=== PATIENT | female | born 1980 | race Caucasian/White ===

== ENCOUNTER 2016-11-04 09:01 | Emergency (ER) ==
[2016-11-04 09:06] VITALS: BP 182/106; TEMP 98.7; BMI 58.7
[2016-11-04 09:26] LABS: BILIRUBIN,URINE Negative (NEGATIVE); KETONES,URINE Negative (NEGATIVE); LEUKOCYTE ESTERASE ,URINE Trace (NEGATIVE); NITRITE,URINE Negative (NEGATIVE); PH,URINE 5.5 (5-9); PROTEIN,URINE Negative (NEGATIVE); URINE, BLOOD Negative (NEGATIVE)
[2016-11-04 09:28] LABS: ADD URINE MICROSCOPIC YES
[2016-11-04 09:29] LABS: URINE PREGNANCY INTERNAL QC INTERNAL QC VALID
--- NOTE | 2016-11-04 09:42 | ED.PDOC ---
General ED Provider: Dr. DUSTIN BOSWELL Chief Complaint: Vaginal Discharge/Swelling Stated Complaint: Patient reports vaginal itching for the past few days. Feels like when she had a yeast infection. Time Seen by Physician: 09:39 Mode of Arrival: Walk-In Information Source: Patient Primary Care Provider: VIVIAN MCINTYRE Nursing and Triage Documentation Reviewed and Agree: Yes Complaint Exam - Complaint/Exam Patient Complains of: Reports: Vaginal discharge (with itching ) Onset/Duration: 2 days Symptoms Are: Still present Timing: Constant Initial Severity: Mild Current Severity: Moderate Location of Pain: Reports: Vulva (minimal pain mostly itching ) Character: Reports: Sharp Aggravating: Reports: None Alleviating: Reports: None Associated Signs and Symptoms: Reports: Vaginal discharge (with itching ) Ectopic Risk Factors: Reports: None Ovarian Torsion Risk Factors: Reports: None Surgical Obstruction Risk Factors: Reports: None RH Status: Unknown Related Surgical History: Reports: None Differential Diagnoses: Other (yeast) Review of Systems - Review Of Systems Constitutional: Reports: No symptoms Eyes: Reports: No symptoms Ears, Nose, Mouth, Throat: Reports: No symptoms Respiratory: Reports: No symptoms Cardiac: Reports: No symptoms GI: Reports: No symptoms : Reports: Discharge (minimal ), Other (vaginal itching ) Musculoskeletal: Reports: No symptoms Skin: Reports: Rash (facial acne ) Neurological: Reports: No symptoms Endocrine: Reports: No symptoms Hematologic/Lymphatic: Reports: No symptoms All Other Systems: Reviewed and Negative Past Medical History - Past Medical History Endocrine: Reports: None Cardiovascular: Reports: Hypertension Respiratory: Reports: None Hematological: Reports: None Gastrointestinal: Reports: None Genitourinary: Reports: None Neuro/Psych: Reports: None Musculoskeletal: Reports: None Cancer: Reports: None Last Menstrual Period: NEXPLANON Other Pertinent Past Medical History: Previous yeast infection., Acne, HERPES - Surgical History General Surgical History: Reports: Cholecystectomy (7 years ago ) - Family History Family History: Reports: None - Social History Smoking Status: Current every day smoker, Light tobacco smoker Hx Substance Use: No Alcohol Screening: Occasionally Physical Exam - Physical Exam Appearance: Well-appearing, No pain distress, Well-nourished Eyes: AARON, EOMI, Conjunctiva clear ENT: Ears normal, Nose normal, Oropharynx normal Neck: Supple Respiratory: Airway patent, Breath sounds clear, Breath sounds equal, Respirations nonlabored Cardiovascular: RRR, Pulses normal, No rub, No murmur GI/: Soft, Nontender, No masses, Bowel sounds normal, No Organomegaly Musculoskeletal: Normal strength, ROM intact, No edema, No calf tenderness Skin: Warm, Dry (Acne noted on the face with redness consistent with rosacia) Neurological: Sensation intact, Motor intact, Reflexes intact, Cranial nerves intact, Alert, Oriented Psychiatric: Affect appropriate, Mood appropriate Critical Care Note - Critical Care Note Total Time (mins): 0 Comments: forgot to take her blood pressure medication. Took it while in the ER. Blood pressure well controlled at home when she takes her blood pressure medications. Course - Course Orders, Labs, Meds: Lab Review 11/04/16 09:15 Urine Color Yellow Urine Clarity Clear Urine pH 5.5 Ur Specific [place] 1.020 Urine Protein Negative Urine Glucose (UA) Negative Urine Ketones Negative Urine Blood Negative Urine Nitrite Negative Urine Bilirubin Negative Urine Urobilinogen 0.2 Ur Leukocyte Esterase Trace Urine Microscopic WBC 0-2 Ur Squamous Epith Cells 20-30 Urine Test Negative Orders Category Date Time Status URINALYSIS C & S IF INDICATED Stat LAB 11/04/16 09:15 Completed URINE Stat LAB 11/04/16 09:15 Completed Vital Signs: Temp Pulse Resp BP Pulse Ox 11/04/16 09:01 98.7 F 73 18 182/106 H 97 Departure - Departure Time of Disposition: 09:46 Disposition: HOME SELF-CARE Discharge Problem: Vaginal irritation, Yeast infection of the vagina, Rosacea, acne Instructions: Vulvovaginal Candidiasis (ED), Rosacea (ED) Condition: Fair Pt referred to PMD for follow-up: Yes Additional Instructions: Take medications as prescribed. Prescriptions: Fluconazole [Diflucan] 150 mg PO DAILY #1 tablet Metronidazole [Noritate] 60 gm TP TID #60 cream..g. Allergies/Adverse Reactions: Allergies No Known Allergies Allergy (Verified 11/04/16 09:06) Home Medications: Ambulatory Orders Fluconazole [Diflucan] 150 mg PO DAILY #1 tablet 11/04/16 Lisinopril [Zestril] 10 mg PO DAILY 11/04/16 Metronidazole [Noritate] 60 gm TP TID #60 cream..g. 11/04/16 Disposition Discussed With: Patient
== END 2016-11-04 10:06 | disposition home or self-care (01) ==
LOC: ED 09:01
DX: B37.3 Candidiasis of vulva and vagina (principal); L71.9 Rosacea, unspecified; I10 Essential (primary) hypertension; F17.210 Nicotine dependence, cigarettes, uncomplicated
CPT/HCPCS: 81001; 81025; 99283